=== PATIENT | female | born 1955 | race Two or more races ===

== ENCOUNTER 2023-08-19 18:11 | Inpatient (IN) | payer MEDICARE, OTHER ==
[~2023-08-19] VITALS: Ht 157.5 cm; Wt 95.4 kg
[~2023-08-19 18:11] MED LIST: DOXY100T2 PO; PRED20TA PO
[2023-08-19] MEDS ORDERED: methylPREDNISolone SOD SUCC 125 MG/2ML VIAL ONE (18:29)
[2023-08-19] MEDS ORDERED: ALBUTEROL FS 2.5 MG/3 ML VIAL.NEB ONE (18:31)
[2023-08-19] MEDS ORDERED: IPRATROPIUM NEB FS 0.5 MG/2.5 ML AMPUL.NEB ONE (18:31)
[2023-08-19 18:37] VITALS: O2SAT 97
[2023-08-19] MEDS: IPRATROPIUM NEB FS 0.5 MG/2.5 ML AMPUL.NEB NEB ONE (18:37)
[2023-08-19] MEDS: ALBUTEROL FS 2.5 MG/3 ML VIAL.NEB CONTNEB ONE (18:37)
[2023-08-19] MEDS: methylPREDNISolone SOD SUCC 125 MG/2ML VIAL IV ONE (18:48)
[2023-08-19] MEDS ORDERED: Magnesium 1GM/D5W 100ML PREMIX 100 ML IV ONE ×2 (18:51→19:20)
[2023-08-19 19:00] LABS: BASOPHILS # (AUTO) 0.2 K/uL (0.0-0.2); HEMATOCRIT 35 % (33-45); HEMOGLOBIN 11.1 g/dL (11.5-14.8); LYMPHOCYTES # (AUTO) 1.1 K/uL (0.8-4.8); LYMPHOCYTES % (AUTO) 10.5 % (20.0-44.0); MEAN CORPUSCULAR HEMOGLOBIN 29 PG (26.0-33.0); MEAN CORPUSCULAR HGB CONC 32 g/dl (31.0-36.0); MEAN CORPUSCULAR VOLUME 91 fL (82-100); MONOCYTES # (AUTO) 0.5 K/uL (0.1-1.30); MONOCYTES % (AUTO) 4.8 % (2.0-12.0); NEUTROPHILS # (AUTO) 8.7 K/uL (1.8-8.9); NEUTROPHILS % (AUTO) 82.7 % (43.0-81.0); PLATELET COUNT (AUTO) 235 K/uL (150-450); RED BLOOD CELL COUNT(AUTO) 3.87 MIL/uL (4.0-5.2); RED CELL DISTRIBUTION WIDTH 21.6 % (11.5-15.0); WHITE BLOOD COUNT (AUTO) 10.5 K/uL (4.3-11.0)
[2023-08-19] MEDS: Magnesium 1GM/D5W 100ML PREMIX 200 ML IV ONE (19:00)
[2023-08-19 19:23] LABS: CALCIUM, SERUM 8.8 mg/dL (8.5-10.1); CARBON DIOXIDE 37 mmol/L (21-32); CHLORIDE 99 mmol/L (98-107); CREATININE 0.4 mg/dL (0.6-1.3); GLUCOSE 268 mg/dL (74-106); POTASSIUM 5.3 mmol/L (3.5-5.1); SODIUM SERUM 140 mmol/L (136-145); UREA NITROGEN, BLOOD 19 mg/dL (7-18)
[2023-08-19 19:38] LABS: ALANINE AMINOTRANSFERASE 22 U/L (12-78); ALBUMIN 2.5 g/dL (3.4-5.0); ALKALINE PHOSPHATASE 70 U/L (46-116); ASPARTATE AMINOTRANSFERASE 12 U/L (15-37); BILIRUBIN,TOTAL 0.3 mg/dL (0.2-1.0); NT-PRO BNP 148 pg/mL (0-125); TOTAL PROTEIN, SERUM 5.8 g/dL (6.4-8.2)
[2023-08-19 19:40] VITALS: O2SAT 93
[2023-08-19] MEDS: VANCOMYCIN 1 GM in IV D5W 250 ML IV ONE (21:00)
[2023-08-19 21:03] LABS: ANISOCYTOSIS 1+; LYMPHOCYTES % (MANUAL) 16 % (16-48); MONOCYTES % (MANUAL) 6 % (0-11.0); NEUTROPHILS % (MANUAL) 78 (42-76); PLATELET ESTIMATE ADEQUATE
[2023-08-19 21:04] LABS: OVALOCYTES 1+
[2023-08-19] MEDS ORDERED: PIPERACI/TAZO 3.375GM/D5W 50ML PB IV ONE (21:04)
[2023-08-19] MEDS: PIPERACILLIN /TAZOBACTAM 3.375 G in IV D5W 50 ML IV ONE (21:10)
[2023-08-19] MEDS ORDERED: AZITHROMYCIN 500 MG VIAL ONE (21:23)
[2023-08-19] MEDS ORDERED: VANCOMYCIN 1 GM /D5W 250 ML PB IV ONE (21:23)
[2023-08-19] MEDS ORDERED: DEXTROSE 50%-WATER 50 ML DISP.SYRIN IV PRN (21:30)
[2023-08-19] MEDS ORDERED: ACETAMINOPHEN 325 MG TABLET PO PRN (21:30)
[2023-08-19] MEDS ORDERED: hydrALAZINE HCL IV 20 MG VIAL IV PRN (21:30)
[2023-08-19] MEDS ORDERED: MORPHINE SULFATE INJ 2 MG/ML DISP.SYRIN IV PRN (21:30)
[2023-08-19] MEDS ORDERED: ONDANSETRON HCL/PF 4 MG/2 ML VIAL IVP PRN (21:30)
[2023-08-19] MEDS ORDERED: LEVOFLOXACIN 750 MG /D5W 150ML 750 MG in PREMIX 1 EA IV SCH (21:30)
[2023-08-19] MEDS: AZITHROMYCIN 500 MG in IV D5W 250 ML IV ONE (22:15)
[2023-08-19] MEDS: BLOOD SUGAR DIAGNOSTIC 1 EACH STRIP VI SCH (23:46)
[2023-08-19] MEDS: *INSULIN REGULAR(HUMULIN R)HUM 100 UNIT/ML VIAL SQ PRN (23:54)
[2023-08-19] MEDS: INSULIN GLARGINE, 100 UNIT/ML CARTRIDGE SQ SCH (23:54)
[2023-08-20] VITALS (11 sets, daily range): BP systolic 99–124; BP diastolic 66–74; TEMP 97.9; O2SAT 94–100
[2023-08-20] MEDS ORDERED: IPRATROPIUM/ALBUTEROL INHALER IH SCH
[2023-08-20] MEDS: TRAZODONE 50 MG TABLET PO SCH ×2 (00:08→21:12)
[2023-08-20] MEDS: QUETIAPINE FUMARATE 100 MG TABLET PO SCH ×2 (00:09→21:12)
[2023-08-20] MEDS ORDERED: VANCOMYCIN 1 GM /D5W 250 ML PB IV ONE (00:17)
[2023-08-20] MEDS: VANCOMYCIN 1 GM in IV D5W 250ml IV ONE (00:22)
[2023-08-20] MEDS: ALBUTEROL FS 2.5 MG/0.5 ML VIAL.NEB NEB SCH (02:04)
[2023-08-20] MEDS: IPRATROPIUM NEB FS 0.5 MG/2.5 ML AMPUL.NEB IH SCH (02:04)
[2023-08-20] MEDS ORDERED: CEFEPIME 1 GM VIAL ONE (02:21)
[2023-08-20] MEDS: CEFEPIME HCL 2 GM in IV D5W 100 ML IV ONE (02:33)
[2023-08-20] MEDS: INSULIN REGULAR, HUMAN 100 UNIT/ML 3 ML VIAL SQ PRN (06:31)
[2023-08-20 07:47] LABS: HEMATOCRIT 30 % (33-45); HEMOGLOBIN 9.6 g/dL (11.5-14.8); LYMPHOCYTES % (AUTO) 11.3 % (20.0-44.0); MEAN CORPUSCULAR HEMOGLOBIN 28 PG (26.0-33.0); MEAN CORPUSCULAR HGB CONC 32 g/dl (31.0-36.0); MEAN CORPUSCULAR VOLUME 89 fL (82-100); MONOCYTES # (AUTO) 0.4 K/uL (0.1-1.30); MONOCYTES % (AUTO) 4.6 % (2.0-12.0); NEUTROPHILS # (AUTO) 7.5 K/uL (1.8-8.9); NEUTROPHILS % (AUTO) 84.1 % (43.0-81.0); PLATELET COUNT (AUTO) 198 K/uL (150-450); RED BLOOD CELL COUNT(AUTO) 3.39 MIL/uL (4.0-5.2); WHITE BLOOD COUNT (AUTO) 8.9 K/uL (4.3-11.0)
[2023-08-20 07:59] LABS: BILIRUBIN,TOTAL 0.2 mg/dL (0.2-1.0); CALCIUM, SERUM 8.5 mg/dL (8.5-10.1); CREATININE 0.5 mg/dL (0.6-1.3); MAGNESIUM 2.2 mg/dL (1.8-2.4); PHOSPHORUS 3.2 mg/dL (2.5-4.9); POTASSIUM 4.6 mmol/L (3.5-5.1); TOTAL PROTEIN, SERUM 4.8 g/dL (6.4-8.2)
[2023-08-20] MEDS ORDERED: HEPARIN SODIUM, PORCINE 5000 UNITS/1 ML VIAL SQ SCH (09:00)
[2023-08-20] MEDS: QUETIAPINE FUMARATE 25 MG TABLET PO SCH (09:09)
[2023-08-20] MEDS: SOTALOL AF 80 MG TABLET PO SCH ×2 (09:10→21:47)
[2023-08-20] MEDS: FUROSEMIDE 40 MG TABLET PO SCH (09:10)
[2023-08-20] MEDS: LOSARTAN POTASSIUM 50 MG TABLET PO SCH (09:10)
[2023-08-20] MEDS: SPIRONOLACTONE 25 MG TABLET PO SCH (09:10)
[2023-08-20] MEDS: DULOXETINE HCL 20 MG CAPSULE.DR PO SCH (09:10)
[2023-08-20] MEDS: APIXABAN 5 MG TABLET PO SCH (09:11)
[2023-08-20] MEDS: VANCOMYCIN 1.25 GM in IV D5W 250 ML IV SCH (09:17)
[2023-08-20] MEDS ORDERED: TRAZ-257 PO (13:16)
[2023-08-20] MEDS ORDERED: IPRA3AMP23 IH (13:16)
[2023-08-20] MEDS ORDERED: FURO40TA5 PO (13:16)
[2023-08-20] MEDS ORDERED: SPIR25TA6 PO (13:16)
[2023-08-20] MEDS ORDERED: QUET50TA PO ×2 (13:16)
[2023-08-20] MEDS ORDERED: QUET200T PO (13:16)
[2023-08-20] MEDS ORDERED: SOTA80TA PO (13:16)
[2023-08-20] MEDS ORDERED: CLON0.1T PO (13:16)
[2023-08-20] MEDS ORDERED: INSU100I30 SQ (13:16)
[2023-08-20] MEDS ORDERED: INSU100I52 SQ ×2 (13:16)
[2023-08-20] MEDS ORDERED: APIX5TAB PO (13:16)
[2023-08-20] MEDS ORDERED: MAGN400O21 PO (13:16)
[2023-08-20] MEDS ORDERED: DOCU100C36 PO (13:16)
[2023-08-20] MEDS ORDERED: MELA3TAB41 PO (13:16)
[2023-08-20] MEDS ORDERED: ALPR1TAB7 PO (13:16)
[2023-08-20] MEDS ORDERED: DULO20CA PO (13:16)
[2023-08-20] MEDS ORDERED: FAMO20TA8 PO (13:16)
[2023-08-20] MEDS ORDERED: BISM262T14 PO (13:16)
[2023-08-20] MEDS ORDERED: GUAI100S9 PO (13:16)
[2023-08-20] MEDS ORDERED: NA P133E RC (13:16)
[2023-08-20] MEDS ORDERED: PANT40TA49 PO (13:16)
[2023-08-20] MEDS ORDERED: BISA10SU11 RC (13:16)
[2023-08-20] MEDS ORDERED: LOSA50TA3 PO (13:16)
[2023-08-20 19:22] LABS: ABG BASE EXCESS 16.5 mmol/L; ABG OXYGEN SATURATION 92.8 % (92.0-98.5); ABG PCO2 74.2 mmHg (35.0-45.0); ABG PH 7.397 (7.350-7.450); ABG PO2 64.7 mmHg (75.0-100.0); ABG TOTAL HEMOGLOBIN 11.7 G/dL (12.0-16.0); AaDO2 105.9 mmHg; COHb 0.6 % (0.5-1.5); MetHb 0.2 % (0.0-1.5); O2Hb 92.1 % (94.0-97.0); SITE, ABG Left Radial
[2023-08-20] MEDS: CEFEPIME 2 GM in IV D5W 100 ML IV SCH (20:41)
[2023-08-20] MEDS ORDERED: INSULIN GLARGINE, 100 UNIT/ML CARTRIDGE SQ SCH (22:00)
[2023-08-21] VITALS (10 sets, daily range): BP systolic 113–138; BP diastolic 60–61; TEMP 98.4–98.8; O2SAT 91–100
[2023-08-21 07:23] LABS: BASOPHILS % (AUTO) 0.1 % (0.0-2.0); EOSINOPHILS % (AUTO) 0.4 % (0.0-6.0); HEMATOCRIT 32 % (33-45); HEMOGLOBIN 10.2 g/dL (11.5-14.8); LYMPHOCYTES # (AUTO) 2.4 K/uL (0.8-4.8); LYMPHOCYTES % (AUTO) 28.1 % (20.0-44.0); MEAN CORPUSCULAR HEMOGLOBIN 28 PG (26.0-33.0); MEAN CORPUSCULAR HGB CONC 32 g/dl (31.0-36.0); MEAN CORPUSCULAR VOLUME 89 fL (82-100); MONOCYTES # (AUTO) 0.9 K/uL (0.1-1.30); NEUTROPHILS # (AUTO) 5.3 K/uL (1.8-8.9); NEUTROPHILS % (AUTO) 61.4 % (43.0-81.0); PLATELET COUNT (AUTO) 194 K/uL (150-450); RED BLOOD CELL COUNT(AUTO) 3.61 MIL/uL (4.0-5.2); RED CELL DISTRIBUTION WIDTH 21.3 % (11.5-15.0); WHITE BLOOD COUNT (AUTO) 8.6 K/uL (4.3-11.0)
[2023-08-21 07:31] LABS: CALCIUM, SERUM 8.4 mg/dL (8.5-10.1); CREATININE 0.2 mg/dL (0.6-1.3); MAGNESIUM 2.2 mg/dL (1.8-2.4); PHOSPHORUS 3.5 mg/dL (2.5-4.9); POTASSIUM 4.4 mmol/L (3.5-5.1)
[2023-08-21] MEDS ORDERED: LOSARTAN POTASSIUM 50 MG TABLET PO SCH (09:00)
[2023-08-21] MEDS ORDERED: SPIRONOLACTONE 25 MG TABLET PO SCH (09:00)
[2023-08-21] MEDS ORDERED: QUETIAPINE FUMARATE 25 MG TABLET PO SCH (09:00)
[2023-08-21] MEDS ORDERED: DULOXETINE HCL 20 MG CAPSULE.DR PO SCH (09:00)
[2023-08-21] MEDS ORDERED: FUROSEMIDE 40 MG TABLET PO SCH (09:00)
[2023-08-21] MEDS: SOTALOL AF 80 MG TABLET PO SCH (09:00)
[2023-08-21] MEDS ORDERED: APIXABAN 5 MG TABLET PO SCH (09:00)
[2023-08-21] MEDS ORDERED: Z GUARD REMEDY 4 OZ OINT TP PRN (10:30)
[2023-08-21] MEDS: methylPREDNISolone SOD SUCC 125 MG/2ML VIAL IV SCH (11:00)
[2023-08-21] MEDS: Z GUARD REMEDY 4 OZ OINT TP SCH (11:50)
[2023-08-21] MEDS: ALPRAZOLAM 0.5 MG TABLET PO PRN (12:22)
[2023-08-21] MEDS: DOCUSATE SODIUM 100 MG CAPSULE PO SCH (13:39)
[2023-08-21] MEDS: SENNOSIDES 8.6 MG TABLET PO SCH (13:39)
[2023-08-21] MEDS: LORAZEPAM 1 MG TABLET PO PRN (17:39)
[2023-08-22] VITALS (13 sets, daily range): BP systolic 108–115; BP diastolic 62–72; TEMP 93–98.4; O2SAT 88–98
[2023-08-22 06:35] LABS: BASOPHILS % (AUTO) 0.4 % (0.0-2.0); HEMATOCRIT 36 % (33-45); HEMOGLOBIN 11.5 g/dL (11.5-14.8); LYMPHOCYTES # (AUTO) 1.3 K/uL (0.8-4.8); LYMPHOCYTES % (AUTO) 13.5 % (20.0-44.0); MEAN CORPUSCULAR HEMOGLOBIN 28 PG (26.0-33.0); MEAN CORPUSCULAR HGB CONC 32 g/dl (31.0-36.0); MEAN CORPUSCULAR VOLUME 88 fL (82-100); MONOCYTES # (AUTO) 0.3 K/uL (0.1-1.30); MONOCYTES % (AUTO) 3.2 % (2.0-12.0); NEUTROPHILS # (AUTO) 8.2 K/uL (1.8-8.9); NEUTROPHILS % (AUTO) 82.9 % (43.0-81.0); PLATELET COUNT (AUTO) 220 K/uL (150-450); RED BLOOD CELL COUNT(AUTO) 4.12 MIL/uL (4.0-5.2); RED CELL DISTRIBUTION WIDTH 20.8 % (11.5-15.0); WHITE BLOOD COUNT (AUTO) 9.9 K/uL (4.3-11.0)
[2023-08-22 07:07] LABS: CALCIUM, SERUM 9.3 mg/dL (8.5-10.1); CREATININE 0.2 mg/dL (0.6-1.3); MAGNESIUM 2.5 mg/dL (1.8-2.4); POTASSIUM 4.3 mmol/L (3.5-5.1)
[2023-08-22] MEDS: CEFEPIME HCL 2 GM in IV D5W 100 ML IV SCH (20:19)
[2023-08-22] MEDS: ALBUTEROL FS 2.5 MG/0.5 ML VIAL.NEB NEB PRN (23:37)
[2023-08-23] VITALS (8 sets, daily range): BP systolic 102; BP diastolic 50; TEMP 97.3; O2SAT 90–98
[2023-08-23] MEDS: NA PHOS,M-B/NA PHOS,DI-BA 1 EA ENEMA RC PRN (03:07)
[2023-08-23 06:59] LABS: HEMATOCRIT 31 % (33-45); LYMPHOCYTES # (AUTO) 1.5 K/uL (0.8-4.8); LYMPHOCYTES % (AUTO) 13.6 % (20.0-44.0); MEAN CORPUSCULAR HEMOGLOBIN 28 PG (26.0-33.0); MEAN CORPUSCULAR HGB CONC 32 g/dl (31.0-36.0); MEAN CORPUSCULAR VOLUME 88 fL (82-100); MONOCYTES # (AUTO) 0.6 K/uL (0.1-1.30); MONOCYTES % (AUTO) 5.5 % (2.0-12.0); NEUTROPHILS # (AUTO) 8.7 K/uL (1.8-8.9); NEUTROPHILS % (AUTO) 80.9 % (43.0-81.0); PLATELET COUNT (AUTO) 197 K/uL (150-450); RED BLOOD CELL COUNT(AUTO) 3.52 MIL/uL (4.0-5.2); RED CELL DISTRIBUTION WIDTH 20.2 % (11.5-15.0); WHITE BLOOD COUNT (AUTO) 10.7 K/uL (4.3-11.0)
[2023-08-23 07:14] LABS: CALCIUM, SERUM 8.8 mg/dL (8.5-10.1); CREATININE 0.2 mg/dL (0.6-1.3); MAGNESIUM 2.3 mg/dL (1.8-2.4); PHOSPHORUS 3.1 mg/dL (2.5-4.9); POTASSIUM 4.2 mmol/L (3.5-5.1)
== END 2023-08-23 14:00 | DRG 177 ==
LOC: ER 18:22 → TELE 21:02 → MED 08-20 10:40
PROVIDERS: ADMIT Internal Medicine
PROC: 05HY33Z Insertion of Infusion Device into Upper Vein, Percutaneous Approach (ICD-10-PCS; principal; 2023-08-20)
DX: J15.69 Pneumonia due to other Gram-negative bacteria (principal); J96.21 Acute and chronic respiratory failure with hypoxia; J96.22 Acute and chronic respiratory failure with hypercapnia; I50.32 Chronic diastolic (congestive) heart failure; J44.0 Chronic obstructive pulmonary disease with (acute) lower respiratory infection; J98.11 Atelectasis; J44.1 Chronic obstructive pulmonary disease with (acute) exacerbation; D68.69 Other thrombophilia; J90 Pleural effusion, not elsewhere classified; I11.0 Hypertensive heart disease with heart failure; F31.9 Bipolar disorder, unspecified; E11.65 Type 2 diabetes mellitus with hyperglycemia; I48.91 Unspecified atrial fibrillation; E87.5 Hyperkalemia; D64.9 Anemia, unspecified; G47.33 Obstructive sleep apnea (adult) (pediatric); Z79.01 Long term (current) use of anticoagulants; Z86.73 Personal history of transient ischemic attack (TIA), and cerebral infarction without residual deficits; Z87.891 Personal history of nicotine dependence; Z99.81 Dependence on supplemental oxygen; Z20.822 Contact with and (suspected) exposure to COVID-19; E86.0 Dehydration; L89.526 Pressure-induced deep tissue damage of left ankle; L89.516 Pressure-induced deep tissue damage of right ankle
CPT/HCPCS: 36415; 36600; 71045-TC; 71250-TC; 80048-TC; 80053-TC; 80076-TC; 80202-TC; 82803-TC; 82962-TC; 83605-TC; 83735-TC; 83880; 84100-TC; 84484-TC; 85025-TC; 93307-TC; 94762-TC; 94799-TC; A4223; G0378; J0456; J0692; J1815; J2543; J2930; J3370; J3475; J7050; J7060

== ENCOUNTER 2023-08-24 00:13 | Emergency (ER) | payer MEDICARE, OTHER ==
[~2023-08-24] VITALS: Ht 167.6 cm; Wt 96.6 kg
[~2023-08-24 00:13] MED LIST changes: +ALPR1TAB7 PO; +APIX5TAB PO; +BISA10SU11 RC; +BISM262T14 PO; +CLON0.1T PO; +DOCU100C36 PO; +DULO20CA PO; +FAMO20TA8 PO; +FURO40TA5 PO; +GUAI100S9 PO; +INSU100I30 SQ; +INSU100I52 SQ; +IPRA3AMP23 IH; +LOSA50TA3 PO; +MAGN400O21 PO; +MELA3TAB41 PO; +NA P133E RC; +PANT40TA49 PO; +QUET200T PO; +QUET50TA PO; +SOTA80TA PO; +SPIR25TA6 PO; +TRAZ-257 PO
[2023-08-24 00:19] VITALS: TEMP 98.3
[2023-08-24 01:20] LABS: ABG OXYGEN SATURATION 98.7 % (92.0-98.5); ABG PCO2 68.2 mmHg (35.0-45.0); ABG PH 7.371 (7.350-7.450); ABG PO2 150.2 mmHg (75.0-100.0); ABG TOTAL HEMOGLOBIN 11.8 G/dL (12.0-16.0); COHb 0.1 % (0.5-1.5); MetHb 0.3 % (0.0-1.5); O2Hb 98.3 % (94.0-97.0); SITE, ABG Right Radial; VENT MODE, BG Room Air
[2023-08-24 01:54] LABS: BASOPHILS % (AUTO) 0.3 % (0.0-2.0); EOSINOPHILS % (AUTO) 0.1 % (0.0-6.0); HEMATOCRIT 33 % (33-45); HEMOGLOBIN 10.7 g/dL (11.5-14.8); LYMPHOCYTES # (AUTO) 1.6 K/uL (0.8-4.8); LYMPHOCYTES % (AUTO) 16.2 % (20.0-44.0); MEAN CORPUSCULAR HEMOGLOBIN 28 PG (26.0-33.0); MEAN CORPUSCULAR HGB CONC 32 g/dl (31.0-36.0); MEAN CORPUSCULAR VOLUME 88 fL (82-100); MONOCYTES # (AUTO) 0.9 K/uL (0.1-1.30); MONOCYTES % (AUTO) 9.2 % (2.0-12.0); NEUTROPHILS # (AUTO) 7.4 K/uL (1.8-8.9); NEUTROPHILS % (AUTO) 74.2 % (43.0-81.0); PLATELET COUNT (AUTO) 199 K/uL (150-450); RED BLOOD CELL COUNT(AUTO) 3.78 MIL/uL (4.0-5.2); RED CELL DISTRIBUTION WIDTH 20.8 % (11.5-15.0)
[2023-08-24 02:07] LABS: APPEARANCE,URINE CLOUDY (CLEAR); BILIRUBIN,URINE NEGATIVE (NEGATIVE); BLOOD, URINE 3+ Ery/uL (NEGATIVE); COLOR,URINE YELLOW (YELLOW); KETONES,URINE NEGATIVE (NEGATIVE); LEUKOCYTE ESTERASE ,URINE 3+ (NEGATIVE); NITRITE, URINE NEGATIVE (NEGATIVE); PROTEIN,URINE NEGATIVE (NEGATIVE); UGLUCOSE NEGATIVE (NEGATIVE); UROBILINOGEN,URINE 0.2 EU/dL (0.2)
[2023-08-24] MEDS ORDERED: methylPREDNISolone SOD SUCC 125 MG/2ML VIAL ONE (02:07)
[2023-08-24] MEDS: methylPREDNISolone SOD SUCC 125 MG/2ML VIAL IV ONE (02:08)
[2023-08-24 02:12] LABS: LACTIC ACID 0.9 mmol/L (0.4-2.0)
[2023-08-24 02:19] LABS: ALANINE AMINOTRANSFERASE 26 U/L (12-78); ALBUMIN 2.4 g/dL (3.4-5.0); ALKALINE PHOSPHATASE 64 U/L (46-116); ASPARTATE AMINOTRANSFERASE < 5 U/L (15-37); BILIRUBIN,TOTAL 0.3 mg/dL (0.2-1.0); CHLORIDE 101 mmol/L (98-107); CREATININE 0.3 mg/dL (0.6-1.3); GLUCOSE 137 mg/dL (74-106); NT-PRO BNP 162 pg/mL (0-125); POTASSIUM 4.5 mmol/L (3.5-5.1); SODIUM SERUM 141 mmol/L (136-145); TOTAL PROTEIN, SERUM 5.6 g/dL (6.4-8.2); UREA NITROGEN, BLOOD 14 mg/dL (7-18)
[2023-08-24 02:24] LABS: CARBON DIOXIDE 41 mmol/L (21-32)
[2023-08-24 02:59] LABS: RBC,URINE TOO NUMEROUS TO COUN /HPF (0-2); WBC,URINE TOO NUMEROUS TO COUN /HPF (0-3)
[2023-08-24 03:00] LABS: ADD URINE CULTURE YES; BACTERIA,URINE 1+ /HPF (None Seen)
[2023-08-24 03:08] VITALS: O2SAT 92
[2023-08-24] MEDS: ALBUTEROL FS 2.5 MG/3 ML VIAL.NEB NEB ONE (03:08)
[2023-08-24] MEDS ORDERED: ALBUTEROL FS 2.5 MG/3 ML VIAL.NEB ONE (03:12)
[2023-08-24 03:29] VITALS: BP 122/77
[2023-08-24] MEDS ORDERED: CEFTRIAXONE 1GM BAG (ER ONLY) 50 ML IV ONE (03:31)
[2023-08-24] MEDS: CEFTRIAXONE 1 G in IV D5W 50 ML IV ONE (03:32)
[2023-08-24 03:39] VITALS: O2SAT 100
== END 2023-08-24 04:42 ==
LOC: ER 00:26
DX: J44.9 Chronic obstructive pulmonary disease, unspecified (principal); N39.0 Urinary tract infection, site not specified; I11.0 Hypertensive heart disease with heart failure; I50.9 Heart failure, unspecified; E11.9 Type 2 diabetes mellitus without complications; I48.91 Unspecified atrial fibrillation; Z86.73 Personal history of transient ischemic attack (TIA), and cerebral infarction without residual deficits; Z79.4 Long term (current) use of insulin; Z79.899 Other long term (current) drug therapy
CPT/HCPCS: 99285; 96365; 71045; 96375; 93005; 82803; 85025; 87040; 87086; 83605; 81001; 36415; 80053; 84484; 83880; 36600 ×2; 94640; J0696 ×2; J2930; J7060

== ENCOUNTER 2023-09-01 16:13 | Inpatient (IN) | payer MEDICARE, OTHER ==
[~2023-09-01] VITALS: Ht 167.6 cm; Wt 94.3 kg
[2023-09-01] MEDS ORDERED: PIPERACI/TAZO 3.375GM/D5W 50ML PB IV ONE (17:07)
[2023-09-01 17:12] LABS: BASOPHILS % (AUTO) 0.7 % (0.0-2.0); EOSINOPHILS % (AUTO) 0.2 % (0.0-6.0); HEMATOCRIT 28 % (33-45); HEMOGLOBIN 9.1 g/dL (11.5-14.8); LYMPHOCYTES # (AUTO) 0.4 K/uL (0.8-4.8); LYMPHOCYTES % (AUTO) 6.9 % (20.0-44.0); MEAN CORPUSCULAR HEMOGLOBIN 28 PG (26.0-33.0); MEAN CORPUSCULAR HGB CONC 32 g/dl (31.0-36.0); MEAN CORPUSCULAR VOLUME 88 fL (82-100); MONOCYTES # (AUTO) 0.3 K/uL (0.1-1.30); MONOCYTES % (AUTO) 4.8 % (2.0-12.0); NEUTROPHILS # (AUTO) 4.8 K/uL (1.8-8.9); NEUTROPHILS % (AUTO) 87.4 % (43.0-81.0); PLATELET COUNT (AUTO) 168 K/uL (150-450); RED BLOOD CELL COUNT(AUTO) 3.23 MIL/uL (4.0-5.2); RED CELL DISTRIBUTION WIDTH 18.5 % (11.5-15.0); WHITE BLOOD COUNT (AUTO) 5.5 K/uL (4.3-11.0)
[2023-09-01 17:14] LABS: APPEARANCE,URINE Clear (CLEAR); BILIRUBIN,URINE Negative (NEGATIVE); BLOOD, URINE Moderate Ery/uL (NEGATIVE); COLOR,URINE YELLOW (YELLOW); KETONES,URINE Negative (NEGATIVE); LEUKOCYTE ESTERASE ,URINE Small (NEGATIVE); NITRITE, URINE Negative (NEGATIVE); PH,URINE 8.5 (5.0-8.0); PROTEIN,URINE Negative (NEGATIVE); UGLUCOSE Negative (NEGATIVE); UROBILINOGEN,URINE 0.2 EU/dL (0.2)
[2023-09-01] MEDS: PIPERACILLIN /TAZOBACTAM 3.375 G in IV D5W 50 ML IV ONE (17:14)
[2023-09-01] MEDS ORDERED: VANCOMYCIN 1 GM /D5W 250 ML PB IV ONE (17:16)
[2023-09-01 17:24] LABS: INR 1.12 (0.91-1.10); PARTIAL THROMBOPLASTIN TIME 21.9 SEC (24.3-34.3); PROTHROMBIN TIME 11.4 SECS (9.2-11.1)
[2023-09-01] MEDS ORDERED: ASCO500T10 PO (17:25)
[2023-09-01] MEDS ORDERED: MELA5TAB PO (17:25)
[2023-09-01] MEDS ORDERED: TRAZ-182 PO (17:25)
[2023-09-01] MEDS ORDERED: MAGN400O6 PO (17:25)
[2023-09-01] MEDS ORDERED: SENN-261 PO (17:25)
[2023-09-01] MEDS ORDERED: INSU100I14 SQ (17:25)
[2023-09-01] MEDS ORDERED: AMIN30LI66 PO (17:25)
[2023-09-01] MEDS ORDERED: MULT-213 PO (17:25)
[2023-09-01] MEDS ORDERED: ACET-868 PO (17:25)
[2023-09-01] MEDS ORDERED: IPRA0.2S49 IH (17:25)
[2023-09-01] MEDS ORDERED: CEFT1VIA14 IV (17:25)
[2023-09-01] MEDS ORDERED: ALPR0.5T8 PO (17:25)
[2023-09-01] MEDS ORDERED: ACET-2605 PO (17:25)
[2023-09-01 17:26] LABS: ALANINE AMINOTRANSFERASE 146 U/L (12-78); ALBUMIN 2.1 g/dL (3.4-5.0); ALKALINE PHOSPHATASE 122 U/L (46-116); ASPARTATE AMINOTRANSFERASE 41 U/L (15-37); BILIRUBIN,DIRECT 0.1 mg/dL (0.0-0.2); BILIRUBIN,TOTAL 0.4 mg/dL (0.2-1.0); CALCIUM, SERUM 8.7 mg/dL (8.5-10.1); CHLORIDE 92 mmol/L (98-107); CREATININE 0.4 mg/dL (0.6-1.3); GLUCOSE 118 mg/dL (74-106); SODIUM SERUM 141 mmol/L (136-145); TOTAL PROTEIN, SERUM 5.9 g/dL (6.4-8.2); UREA NITROGEN, BLOOD 6 mg/dL (7-18)
[2023-09-01] MEDS: VANCOMYCIN 1 GM in IV D5W 250 ML IV ONE (17:30)
[2023-09-01 17:32] LABS: CARBON DIOXIDE 50 mmol/L (21-32); POTASSIUM 2.2 mmol/L (3.5-5.1)
[2023-09-01 17:33] LABS: ADD URINE CULTURE YES; BACTERIA,URINE 1+ /HPF (None Seen); RBC,URINE 21-50 /HPF (0-2)
[2023-09-01 17:48] LABS: LACTIC ACID 1.5 mmol/L (0.4-2.0)
[2023-09-01] MEDS ORDERED: POTASSIUM CL. PREMIX PERIPHER. 50 ML ONE ×2 (18:02→19:11)
[2023-09-01] MEDS: IV NS 0.9% 1,000 ML BAG IV ONE (18:05)
[2023-09-01] MEDS ORDERED: ACETAMINOPHEN ES 500 MG TABLET ONE (18:06)
[2023-09-01] MEDS ORDERED: ASPIRIN 81 MG TAB.CHEW ONE (18:07)
[2023-09-01] MEDS: ACETAMINOPHEN ES 500 MG TABLET PO ONE (18:15)
[2023-09-01] MEDS: ASPIRIN 81 MG TAB.CHEW PO ONE (18:15)
[2023-09-01] MEDS: POTASSIUM CL. PREMIX PERIPHER. 50 ML IV SCH ×2 (18:28→21:31)
[2023-09-01] MEDS ORDERED: ONDANSETRON HCL/PF 4 MG/2 ML VIAL IVP PRN (19:00)
[2023-09-01] MEDS ORDERED: MAGNESIUM HYDROXIDE 30 ML UDC PO PRN ×2 (19:00)
[2023-09-01] MEDS ORDERED: Z GUARD REMEDY 4 OZ OINT TP PRN (19:00)
[2023-09-01] MEDS ORDERED: ACETAMINOPHEN 325 MG TABLET PO PRN (19:00)
[2023-09-01] MEDS ORDERED: MORPHINE SULFATE INJ 2 MG/ML DISP.SYRIN IV PRN (19:00)
[2023-09-01] MEDS: POTASSIUM CHLORIDE 20 MEQ POWDER PACKET PO ONE (19:18)
[2023-09-01] MEDS ORDERED: DEXTROSE 50%-WATER 50 ML DISP.SYRIN IV PRN (19:30)
[2023-09-01] MEDS: SOTALOL HCL 80 MG TABLET PO SCH (21:00)
[2023-09-01] MEDS: APIXABAN 5 MG TABLET PO SCH (21:00)
[2023-09-01 21:48] VITALS: BP 113/61; TEMP 97; O2SAT 96
[2023-09-01] MEDS: IV NS 0.9% 1,000 ML BAG IV PRN (21:57)
[2023-09-01] MEDS: CEFEPIME HCL 2 GM in IV D5W 100 ML IV SCH (21:59)
[2023-09-01] MEDS: SENNOSIDES 8.6 MG TABLET PO SCH (22:00)
[2023-09-01] MEDS: BLOOD SUGAR DIAGNOSTIC 1 EACH STRIP IN SCH (22:41)
[2023-09-02] VITALS (7 sets, daily range): BP systolic 105–125; BP diastolic 56–81; TEMP 97.7–98.6; O2SAT 95–98
[2023-09-02] MEDS ORDERED: VANCOMYCIN 500 MG VIAL ONE (03:22)
[2023-09-02] MEDS: VANCOMYCIN HCL 1.25 GM in IV D5W 250 ML IV SCH (03:37)
[2023-09-02] MEDS: VANCOMYCIN 1 GM /D5W 250 ML PB IV ONE (03:39)
[2023-09-02 04:24] LABS: ABG BASE EXCESS 17.9 mmol/L; ABG OXYGEN SATURATION 84.9 % (92.0-98.5); ABG PCO2 73.2 mmHg (35.0-45.0); ABG PH 7.414 (7.350-7.450); ABG PO2 50.4 mmHg (75.0-100.0); ABG TOTAL HEMOGLOBIN 11.6 G/dL (12.0-16.0); AaDO2 77.5 mmHg; COHb 1.1 % (0.5-1.5); MetHb 0.3 % (0.0-1.5); O2Hb 83.7 % (94.0-97.0); SITE, ABG Right Radial; VENT MODE, BG Bipap 20/5 30% RR14
[2023-09-02 06:22] LABS: BASOPHILS % (AUTO) 0.4 % (0.0-2.0); HEMATOCRIT 26 % (33-45); HEMOGLOBIN 8.3 g/dL (11.5-14.8); LYMPHOCYTES # (AUTO) 0.5 K/uL (0.8-4.8); MEAN CORPUSCULAR HEMOGLOBIN 29 PG (26.0-33.0); MEAN CORPUSCULAR HGB CONC 32 g/dl (31.0-36.0); MEAN CORPUSCULAR VOLUME 89 fL (82-100); MONOCYTES # (AUTO) 0.5 K/uL (0.1-1.30); MONOCYTES % (AUTO) 11.4 % (2.0-12.0); NEUTROPHILS # (AUTO) 3.6 K/uL (1.8-8.9); NEUTROPHILS % (AUTO) 76.2 % (43.0-81.0); PLATELET COUNT (AUTO) 152 K/uL (150-450); RED BLOOD CELL COUNT(AUTO) 2.89 MIL/uL (4.0-5.2); WHITE BLOOD COUNT (AUTO) 4.8 K/uL (4.3-11.0)
[2023-09-02 07:11] LABS: CALCIUM, SERUM 8.2 mg/dL (8.5-10.1); CREATININE 0.3 mg/dL (0.6-1.3); MAGNESIUM 1.6 mg/dL (1.8-2.4); PHOSPHORUS 3.4 mg/dL (2.5-4.9); POTASSIUM 2.9 mmol/L (3.5-5.1)
[2023-09-02 07:25] LABS: THYROID STIMULATING HORMONE 0.739 uIU/mL (0.358-3.74)
[2023-09-02] MEDS: LOSARTAN POTASSIUM 50 MG TABLET PO SCH (08:43)
[2023-09-02] MEDS: PANTOPRAZOLE 40 MG VIAL IV SCH (08:43)
[2023-09-02] MEDS: DULOXETINE HCL 20 MG CAPSULE.DR PO SCH (08:44)
[2023-09-02] MEDS: DOCUSATE SODIUM 100 MG CAPSULE PO SCH (08:44)
[2023-09-02] MEDS: ASCORBIC ACID 500 MG TABLET PO SCH (08:44)
[2023-09-02] MEDS: MULTIVITAMINS,THERAGRAN 1 UDTAB TABLET PO SCH (08:45)
[2023-09-02] MEDS: PROSOURCE / PROSTAT (PYXIS) 30 ML UDC PO SCH (08:45)
[2023-09-02] MEDS: MAGNESIUM OXIDE 400 MG TABLET PO ONE (10:32)
[2023-09-02] MEDS: POTASSIUM CHLORIDE 20 MEQ TAB.PRT.SR PO SCH (10:40)
[2023-09-02] MEDS ORDERED: POTASSIUM CHLORIDE 20 MEQ TAB.PRT.SR PO SCH (14:00)
[2023-09-02] MEDS: POTASSIUM CL. PREMIX PERIPHER. 50 ML IV SCH (14:28)
[2023-09-02] MEDS: INSULIN REGULAR, HUMAN 100 UNIT/ML 3 ML VIAL SQ PRN (21:27)
[2023-09-02 22:01] LABS: ABG BASE EXCESS 16.5 mmol/L; ABG OXYGEN SATURATION 89.5 % (92.0-98.5); ABG PCO2 91.1 mmHg (35.0-45.0); ABG PH 7.317 (7.350-7.450); ABG PO2 64.7 mmHg (75.0-100.0); ABG TOTAL HEMOGLOBIN 9.5 G/dL (12.0-16.0); AaDO2 145.2 mmHg; COHb 0.4 % (0.5-1.5); MetHb 0.3 % (0.0-1.5); O2Hb 88.9 % (94.0-97.0); SITE, ABG Right Radial; VENT MODE, BG SIMPLE MASK
[2023-09-03] MEDS: ALBUTEROL FS 2.5 MG/3 ML VIAL.NEB NEB PRN (00:35)
[2023-09-03 01:00] VITALS: BP 131/68; TEMP 97.9; O2SAT 98
[2023-09-03 04:00] VITALS: BP 107/64; TEMP 98.3; O2SAT 98
[2023-09-03] MEDS: VANCOMYCIN HCL 1.25 GM in IV D5W 250 ML IV SCH (04:48)
[2023-09-03 07:19] LABS: BASOPHILS % (AUTO) 0.5 % (0.0-2.0); EOSINOPHILS # (AUTO) 0.1 K/uL (0.0-0.7); EOSINOPHILS % (AUTO) 1.2 % (0.0-6.0); HEMATOCRIT 27 % (33-45); HEMOGLOBIN 8.5 g/dL (11.5-14.8); LYMPHOCYTES # (AUTO) 1.2 K/uL (0.8-4.8); LYMPHOCYTES % (AUTO) 23.3 % (20.0-44.0); MEAN CORPUSCULAR HEMOGLOBIN 29 PG (26.0-33.0); MEAN CORPUSCULAR HGB CONC 32 g/dl (31.0-36.0); MEAN CORPUSCULAR VOLUME 90 fL (82-100); MONOCYTES # (AUTO) 0.7 K/uL (0.1-1.30); MONOCYTES % (AUTO) 13.3 % (2.0-12.0); NEUTROPHILS # (AUTO) 3.1 K/uL (1.8-8.9); NEUTROPHILS % (AUTO) 61.7 % (43.0-81.0); PLATELET COUNT (AUTO) 174 K/uL (150-450); RED BLOOD CELL COUNT(AUTO) 2.97 MIL/uL (4.0-5.2); RED CELL DISTRIBUTION WIDTH 18.5 % (11.5-15.0)
[2023-09-03 07:49] LABS: CREATININE 0.5 mg/dL (0.6-1.3); POTASSIUM 2.9 mmol/L (3.5-5.1)
[2023-09-03 08:00] VITALS: BP 156/104; TEMP 98.1; O2SAT 96
[2023-09-03 08:10] LABS: CALCIUM, SERUM 8.7 mg/dL (8.5-10.1)
[2023-09-03] MEDS: PANTOPRAZOLE 40 MG/PACK PACK PO SCH (08:41)
[2023-09-03] MEDS: ALPRAZOLAM 0.25 MG TABLET PO ONE (10:44)
[2023-09-03] MEDS: POTASSIUM CHLORIDE 20 MEQ POWDER PACKET PO SCH (11:36)
[2023-09-03] MEDS: ACETAMINOPHEN 325 MG TABLET PO PRN (11:36)
[2023-09-03 12:00] VITALS: BP 97/65; TEMP 98.1; O2SAT 94
[2023-09-03 16:00] VITALS: BP 96/60; TEMP 97.9; O2SAT 98
[2023-09-03 20:00] VITALS: BP 104/58; TEMP 97.7; O2SAT 96
[2023-09-03 20:46] LABS: ABG BASE EXCESS 14.6 mmol/L; ABG OXYGEN SATURATION 97.1 % (92.0-98.5); ABG PCO2 79.2 mmHg (35.0-45.0); ABG PH 7.355 (7.350-7.450); ABG PO2 97.9 mmHg (75.0-100.0); ABG TOTAL HEMOGLOBIN 11.2 G/dL (12.0-16.0); AaDO2 132.9 mmHg; COHb 0.5 % (0.5-1.5); O2Hb 96.6 % (94.0-97.0); SITE, ABG Left Radial; VENT MODE, BG ST 20/5 14 45%
[2023-09-03] MEDS: MAG HYDROX/AL HYDROX/SIMETH 30 ML UDC PO PRN (21:20)
[2023-09-04] VITALS: BP 112/64; TEMP 98; O2SAT 98
[2023-09-04 04:00] VITALS: BP 112/57; TEMP 98.1; O2SAT 93
[2023-09-04 04:18] LABS: BASOPHILS % (AUTO) 0.2 % (0.0-2.0); EOSINOPHILS # (AUTO) 0.1 K/uL (0.0-0.7); EOSINOPHILS % (AUTO) 1.3 % (0.0-6.0); HEMATOCRIT 27 % (33-45); HEMOGLOBIN 8.8 g/dL (11.5-14.8); LYMPHOCYTES # (AUTO) 1.2 K/uL (0.8-4.8); LYMPHOCYTES % (AUTO) 24.2 % (20.0-44.0); MEAN CORPUSCULAR HEMOGLOBIN 29 PG (26.0-33.0); MEAN CORPUSCULAR HGB CONC 32 g/dl (31.0-36.0); MEAN CORPUSCULAR VOLUME 90 fL (82-100); MONOCYTES # (AUTO) 0.6 K/uL (0.1-1.30); MONOCYTES % (AUTO) 12.9 % (2.0-12.0); NEUTROPHILS % (AUTO) 61.4 % (43.0-81.0); PLATELET COUNT (AUTO) 196 K/uL (150-450); RED BLOOD CELL COUNT(AUTO) 3.05 MIL/uL (4.0-5.2); RED CELL DISTRIBUTION WIDTH 18.3 % (11.5-15.0); WHITE BLOOD COUNT (AUTO) 4.8 K/uL (4.3-11.0)
[2023-09-04 04:38] LABS: CALCIUM, SERUM 8.6 mg/dL (8.5-10.1); CREATININE 0.6 mg/dL (0.6-1.3); POTASSIUM 3.7 mmol/L (3.5-5.1)
[2023-09-04 08:00] VITALS: BP 105/61; TEMP 98.4; O2SAT 94
[2023-09-04] MEDS: GLUCERNA SHAKE 237 ML CAN PO SCH (09:43)
[2023-09-04 12:00] VITALS: BP 111/71; TEMP 98.7; O2SAT 97
[2023-09-04 16:00] VITALS: BP 121/71; TEMP 99.2; O2SAT 95
[2023-09-04 20:00] VITALS: BP 117/72; TEMP 98.1; O2SAT 99
[2023-09-05] VITALS: BP 97/65; TEMP 98.3; O2SAT 99
[2023-09-05 04:00] VITALS: BP 109/63; TEMP 98.2; O2SAT 99
[2023-09-05 06:23] LABS: BASOPHILS % (AUTO) 0.4 % (0.0-2.0); EOSINOPHILS # (AUTO) 0.1 K/uL (0.0-0.7); EOSINOPHILS % (AUTO) 1.5 % (0.0-6.0); HEMATOCRIT 27 % (33-45); HEMOGLOBIN 8.8 g/dL (11.5-14.8); LYMPHOCYTES # (AUTO) 1.4 K/uL (0.8-4.8); LYMPHOCYTES % (AUTO) 27.7 % (20.0-44.0); MEAN CORPUSCULAR HEMOGLOBIN 29 PG (26.0-33.0); MEAN CORPUSCULAR HGB CONC 32 g/dl (31.0-36.0); MEAN CORPUSCULAR VOLUME 89 fL (82-100); MONOCYTES # (AUTO) 0.6 K/uL (0.1-1.30); MONOCYTES % (AUTO) 11.6 % (2.0-12.0); NEUTROPHILS # (AUTO) 3.1 K/uL (1.8-8.9); NEUTROPHILS % (AUTO) 58.8 % (43.0-81.0); PLATELET COUNT (AUTO) 266 K/uL (150-450); RED BLOOD CELL COUNT(AUTO) 3.09 MIL/uL (4.0-5.2); RED CELL DISTRIBUTION WIDTH 18.8 % (11.5-15.0); WHITE BLOOD COUNT (AUTO) 5.2 K/uL (4.3-11.0)
[2023-09-05 06:29] LABS: CALCIUM, SERUM 8.7 mg/dL (8.5-10.1); CREATININE 0.5 mg/dL (0.6-1.3); POTASSIUM 3.4 mmol/L (3.5-5.1)
[2023-09-05] MEDS: IPRATROPIUM NEB FS 0.5 MG/2.5 ML AMPUL.NEB NEB PRN (07:29)
[2023-09-05 08:00] VITALS: BP 105/62; TEMP 98.1; O2SAT 100
[2023-09-05] MEDS ORDERED: VANCOMYCIN 1 GM in IV D5W 250ml IV SCH (09:00)
[2023-09-05] MEDS: POTASSIUM CHLORIDE 20 MEQ TAB.PRT.SR PO ONE (09:25)
[2023-09-05] MEDS: VANCOMYCIN 1 GM in IV D5W 250ml IV SCH (11:55)
[2023-09-05 12:00] VITALS: BP 107/72; TEMP 97.7; O2SAT 91
[2023-09-05 16:00] VITALS: BP 107/65; TEMP 98.2; O2SAT 100
[2023-09-05] MEDS: MEROPENEM 1 G in IV NS 0.9% 100 ML IV SCH (16:10)
[2023-09-05] MEDS: ACETAMINOPHEN ES 500 MG TABLET PO PRN (17:24)
[2023-09-05 20:00] VITALS: BP 118/63; TEMP 98.5; O2SAT 100
[2023-09-06] VITALS (9 sets, daily range): BP systolic 107–140; BP diastolic 65–82; TEMP 97.9–98.5; O2SAT 96–100
[2023-09-06 03:45] LABS: ABG BASE EXCESS 6.5 mmol/L; ABG OXYGEN SATURATION 92.5 % (92.0-98.5); ABG PH 7.397 (7.350-7.450); AaDO2 121.8 mmHg; COHb 0.4 % (0.5-1.5); MetHb 0.1 % (0.0-1.5); SITE, ABG Right Radial
[2023-09-06 03:45] LABS: ABG BASE EXCESS 12.1 mmol/L; ABG OXYGEN SATURATION 89.3 % (92.0-98.5); ABG PCO2 62.4 mmHg (35.0-45.0); ABG PH 7.411 (7.350-7.450); ABG TOTAL HEMOGLOBIN 10.5 G/dL (12.0-16.0); AaDO2 157.4 mmHg; COHb 0.3 % (0.5-1.5); MetHb 0.1 % (0.0-1.5); O2Hb 88.9 % (94.0-97.0); SITE, ABG Right Radial
[2023-09-06 06:35] LABS: BASOPHILS % (AUTO) 0.7 % (0.0-2.0); EOSINOPHILS # (AUTO) 0.1 K/uL (0.0-0.7); EOSINOPHILS % (AUTO) 1.9 % (0.0-6.0); HEMATOCRIT 27 % (33-45); LYMPHOCYTES # (AUTO) 1.6 K/uL (0.8-4.8); LYMPHOCYTES % (AUTO) 32.6 % (20.0-44.0); MEAN CORPUSCULAR HEMOGLOBIN 29 PG (26.0-33.0); MEAN CORPUSCULAR HGB CONC 33 g/dl (31.0-36.0); MEAN CORPUSCULAR VOLUME 88 fL (82-100); MONOCYTES # (AUTO) 0.7 K/uL (0.1-1.30); MONOCYTES % (AUTO) 13.4 % (2.0-12.0); NEUTROPHILS # (AUTO) 2.6 K/uL (1.8-8.9); NEUTROPHILS % (AUTO) 51.4 % (43.0-81.0); PLATELET COUNT (AUTO) 295 K/uL (150-450); RED BLOOD CELL COUNT(AUTO) 3.12 MIL/uL (4.0-5.2); RED CELL DISTRIBUTION WIDTH 18.1 % (11.5-15.0)
[2023-09-06 07:06] LABS: CALCIUM, SERUM 8.9 mg/dL (8.5-10.1); CREATININE 0.6 mg/dL (0.6-1.3); PHOSPHORUS 2.5 mg/dL (2.5-4.9); POTASSIUM 3.5 mmol/L (3.5-5.1)
[2023-09-07] VITALS (7 sets, daily range): BP systolic 110–163; BP diastolic 70–87; TEMP 97.5–98; O2SAT 95–98
[2023-09-07 07:12] LABS: BASOPHILS % (AUTO) 0.4 % (0.0-2.0); EOSINOPHILS # (AUTO) 0.1 K/uL (0.0-0.7); EOSINOPHILS % (AUTO) 1.9 % (0.0-6.0); HEMATOCRIT 33 % (33-45); HEMOGLOBIN 10.6 g/dL (11.5-14.8); LYMPHOCYTES # (AUTO) 1.6 K/uL (0.8-4.8); MEAN CORPUSCULAR HEMOGLOBIN 28 PG (26.0-33.0); MEAN CORPUSCULAR HGB CONC 33 g/dl (31.0-36.0); MEAN CORPUSCULAR VOLUME 88 fL (82-100); MONOCYTES # (AUTO) 0.6 K/uL (0.1-1.30); MONOCYTES % (AUTO) 13.4 % (2.0-12.0); NEUTROPHILS # (AUTO) 2.1 K/uL (1.8-8.9); NEUTROPHILS % (AUTO) 48.3 % (43.0-81.0); PLATELET COUNT (AUTO) 326 K/uL (150-450); RED BLOOD CELL COUNT(AUTO) 3.73 MIL/uL (4.0-5.2); RED CELL DISTRIBUTION WIDTH 18.3 % (11.5-15.0); WHITE BLOOD COUNT (AUTO) 4.4 K/uL (4.3-11.0)
[2023-09-07 08:11] LABS: CALCIUM, SERUM 8.6 mg/dL (8.5-10.1); CREATININE 0.4 mg/dL (0.6-1.3); MAGNESIUM 1.8 mg/dL (1.8-2.4); PHOSPHORUS 2.8 mg/dL (2.5-4.9); POTASSIUM 3.3 mmol/L (3.5-5.1)
[2023-09-07] MEDS: POTASSIUM CHLORIDE 20 MEQ TAB.PRT.SR PO ONE (09:23)
[2023-09-07 19:13] LABS: ABG BASE EXCESS 8.2 mmol/L; ABG OXYGEN SATURATION 89.5 % (92.0-98.5); ABG PCO2 62.2 mmHg (35.0-45.0); ABG PH 7.369 (7.350-7.450); ABG PO2 60.5 mmHg (75.0-100.0); ABG TOTAL HEMOGLOBIN 10.3 G/dL (12.0-16.0); AaDO2 94.9 mmHg; COHb 0.3 % (0.5-1.5); MetHb 0.3 % (0.0-1.5); SITE, ABG Right Radial
[2023-09-07] MEDS: ALPRAZOLAM 0.25 MG TABLET PO PRN (22:00)
[2023-09-08] VITALS (8 sets, daily range): BP systolic 128–158; BP diastolic 63–78; TEMP 97.5–98.8; O2SAT 93–98
[2023-09-08 07:38] LABS: BASOPHILS % (AUTO) 0.6 % (0.0-2.0); EOSINOPHILS # (AUTO) 0.1 K/uL (0.0-0.7); EOSINOPHILS % (AUTO) 2.1 % (0.0-6.0); HEMATOCRIT 32 % (33-45); HEMOGLOBIN 9.9 g/dL (11.5-14.8); LYMPHOCYTES % (AUTO) 35.2 % (20.0-44.0); MEAN CORPUSCULAR HEMOGLOBIN 28 PG (26.0-33.0); MEAN CORPUSCULAR HGB CONC 32 g/dl (31.0-36.0); MEAN CORPUSCULAR VOLUME 89 fL (82-100); MONOCYTES # (AUTO) 0.8 K/uL (0.1-1.30); MONOCYTES % (AUTO) 14.4 % (2.0-12.0); NEUTROPHILS # (AUTO) 2.7 K/uL (1.8-8.9); NEUTROPHILS % (AUTO) 47.7 % (43.0-81.0); PLATELET COUNT (AUTO) 422 K/uL (150-450); RED BLOOD CELL COUNT(AUTO) 3.55 MIL/uL (4.0-5.2); RED CELL DISTRIBUTION WIDTH 18.4 % (11.5-15.0); WHITE BLOOD COUNT (AUTO) 5.8 K/uL (4.3-11.0)
[2023-09-08 08:13] LABS: CALCIUM, SERUM 8.9 mg/dL (8.5-10.1); CREATININE 0.4 mg/dL (0.6-1.3); MAGNESIUM 1.9 mg/dL (1.8-2.4); PHOSPHORUS 2.7 mg/dL (2.5-4.9); POTASSIUM 3.5 mmol/L (3.5-5.1)
[2023-09-09] VITALS (8 sets, daily range): BP systolic 136–163; BP diastolic 65–80; TEMP 96.9–98.4; O2SAT 90–99
[2023-09-09 07:25] LABS: BASOPHILS % (AUTO) 0.4 % (0.0-2.0); EOSINOPHILS # (AUTO) 0.1 K/uL (0.0-0.7); EOSINOPHILS % (AUTO) 1.5 % (0.0-6.0); HEMATOCRIT 32 % (33-45); HEMOGLOBIN 10.5 g/dL (11.5-14.8); LYMPHOCYTES # (AUTO) 2.3 K/uL (0.8-4.8); LYMPHOCYTES % (AUTO) 31.3 % (20.0-44.0); MEAN CORPUSCULAR HEMOGLOBIN 29 PG (26.0-33.0); MEAN CORPUSCULAR HGB CONC 32 g/dl (31.0-36.0); MEAN CORPUSCULAR VOLUME 88 fL (82-100); MONOCYTES % (AUTO) 13.6 % (2.0-12.0); NEUTROPHILS % (AUTO) 53.2 % (43.0-81.0); PLATELET COUNT (AUTO) 479 K/uL (150-450); RED BLOOD CELL COUNT(AUTO) 3.67 MIL/uL (4.0-5.2); RED CELL DISTRIBUTION WIDTH 17.8 % (11.5-15.0); WHITE BLOOD COUNT (AUTO) 7.4 K/uL (4.3-11.0)
[2023-09-09 08:00] LABS: CALCIUM, SERUM 8.9 mg/dL (8.5-10.1); CREATININE 0.4 mg/dL (0.6-1.3); MAGNESIUM 1.9 mg/dL (1.8-2.4); PHOSPHORUS 2.8 mg/dL (2.5-4.9); POTASSIUM 3.4 mmol/L (3.5-5.1)
[2023-09-09] MEDS: POTASSIUM CHLORIDE 20 MEQ TAB.PRT.SR PO ONE (11:35)
[2023-09-10] VITALS (7 sets, daily range): BP systolic 130–165; BP diastolic 63–90; TEMP 97.2–98.6; O2SAT 90–99
[2023-09-10 07:18] LABS: BASOPHILS % (AUTO) 0.6 % (0.0-2.0); EOSINOPHILS # (AUTO) 0.2 K/uL (0.0-0.7); EOSINOPHILS % (AUTO) 2.6 % (0.0-6.0); HEMATOCRIT 33 % (33-45); HEMOGLOBIN 10.7 g/dL (11.5-14.8); LYMPHOCYTES # (AUTO) 2.8 K/uL (0.8-4.8); LYMPHOCYTES % (AUTO) 34.1 % (20.0-44.0); MEAN CORPUSCULAR HEMOGLOBIN 29 PG (26.0-33.0); MEAN CORPUSCULAR HGB CONC 32 g/dl (31.0-36.0); MEAN CORPUSCULAR VOLUME 89 fL (82-100); MONOCYTES % (AUTO) 12.6 % (2.0-12.0); NEUTROPHILS # (AUTO) 4.1 K/uL (1.8-8.9); NEUTROPHILS % (AUTO) 50.1 % (43.0-81.0); PLATELET COUNT (AUTO) 443 K/uL (150-450); RED BLOOD CELL COUNT(AUTO) 3.69 MIL/uL (4.0-5.2); RED CELL DISTRIBUTION WIDTH 18.1 % (11.5-15.0); WHITE BLOOD COUNT (AUTO) 8.2 K/uL (4.3-11.0)
[2023-09-10 07:48] LABS: CALCIUM, SERUM 8.9 mg/dL (8.5-10.1); CREATININE 0.3 mg/dL (0.6-1.3); PHOSPHORUS 2.6 mg/dL (2.5-4.9)
[2023-09-11] VITALS (8 sets, daily range): BP systolic 125–151; BP diastolic 68–88; TEMP 97.5–98.8; O2SAT 96–99
[2023-09-11 07:20] LABS: BASOPHILS % (AUTO) 0.4 % (0.0-2.0); EOSINOPHILS # (AUTO) 0.1 K/uL (0.0-0.7); EOSINOPHILS % (AUTO) 1.3 % (0.0-6.0); HEMATOCRIT 32 % (33-45); HEMOGLOBIN 10.2 g/dL (11.5-14.8); LYMPHOCYTES # (AUTO) 2.7 K/uL (0.8-4.8); LYMPHOCYTES % (AUTO) 32.6 % (20.0-44.0); MEAN CORPUSCULAR HEMOGLOBIN 28 PG (26.0-33.0); MEAN CORPUSCULAR HGB CONC 32 g/dl (31.0-36.0); MEAN CORPUSCULAR VOLUME 88 fL (82-100); MONOCYTES % (AUTO) 11.5 % (2.0-12.0); NEUTROPHILS # (AUTO) 4.6 K/uL (1.8-8.9); NEUTROPHILS % (AUTO) 54.2 % (43.0-81.0); PLATELET COUNT (AUTO) 490 K/uL (150-450); RED BLOOD CELL COUNT(AUTO) 3.68 MIL/uL (4.0-5.2); RED CELL DISTRIBUTION WIDTH 17.7 % (11.5-15.0); WHITE BLOOD COUNT (AUTO) 8.4 K/uL (4.3-11.0)
[2023-09-11 07:30] LABS: CALCIUM, SERUM 8.8 mg/dL (8.5-10.1); CREATININE 0.4 mg/dL (0.6-1.3); POTASSIUM 3.3 mmol/L (3.5-5.1)
[2023-09-11] MEDS: POTASSIUM CHLORIDE 20 MEQ TAB.PRT.SR PO SCH (10:17)
[2023-09-12] VITALS: BP 139/97; TEMP 97.8; O2SAT 95
[2023-09-12 04:00] VITALS: BP 131/71; TEMP 98.6; O2SAT 95
[2023-09-12 07:15] LABS: BASOPHILS % (AUTO) 0.4 % (0.0-2.0); EOSINOPHILS # (AUTO) 0.1 K/uL (0.0-0.7); EOSINOPHILS % (AUTO) 1.2 % (0.0-6.0); HEMATOCRIT 32 % (33-45); LYMPHOCYTES # (AUTO) 2.8 K/uL (0.8-4.8); LYMPHOCYTES % (AUTO) 30.5 % (20.0-44.0); MEAN CORPUSCULAR HEMOGLOBIN 28 PG (26.0-33.0); MEAN CORPUSCULAR HGB CONC 31 g/dl (31.0-36.0); MEAN CORPUSCULAR VOLUME 88 fL (82-100); MONOCYTES # (AUTO) 1.1 K/uL (0.1-1.30); MONOCYTES % (AUTO) 11.7 % (2.0-12.0); NEUTROPHILS # (AUTO) 5.1 K/uL (1.8-8.9); NEUTROPHILS % (AUTO) 56.2 % (43.0-81.0); PLATELET COUNT (AUTO) 473 K/uL (150-450); RED BLOOD CELL COUNT(AUTO) 3.65 MIL/uL (4.0-5.2); RED CELL DISTRIBUTION WIDTH 17.5 % (11.5-15.0); WHITE BLOOD COUNT (AUTO) 9.1 K/uL (4.3-11.0)
[2023-09-12 08:00] VITALS: BP 151/74; TEMP 98.4; O2SAT 91
[2023-09-12 08:16] LABS: ABG BASE EXCESS 14.9 mmol/L; ABG OXYGEN SATURATION 88.8 % (92.0-98.5); ABG PCO2 78.5 mmHg (35.0-45.0); ABG PH 7.361 (7.350-7.450); ABG TOTAL HEMOGLOBIN 11.5 G/dL (12.0-16.0); AaDO2 78.3 mmHg; COHb 0.9 % (0.5-1.5); MetHb 0.3 % (0.0-1.5); O2Hb 87.7 % (94.0-97.0); SITE, ABG Right Radial
[2023-09-12 08:22] LABS: CALCIUM, SERUM 8.9 mg/dL (8.5-10.1); CREATININE 0.4 mg/dL (0.6-1.3); MAGNESIUM 1.6 mg/dL (1.8-2.4); PHOSPHORUS 2.6 mg/dL (2.5-4.9); POTASSIUM 3.1 mmol/L (3.5-5.1)
[2023-09-12] MEDS: MAGNESIUM OXIDE 400 MG TABLET PO ONE (10:42)
[2023-09-12] MEDS: POTASSIUM CHLORIDE 20 MEQ TAB.PRT.SR PO SCH (10:42)
[2023-09-12 12:00] VITALS: BP 124/81; TEMP 98.4; O2SAT 97
[2023-09-12 16:00] VITALS: BP 177/95; TEMP 98.4; O2SAT 97
[2023-09-12 16:33] VITALS: BP 177/95
[2023-09-12] MEDS: hydrALAZINE HCL IV 20 MG VIAL IV PRN (16:33)
== END 2023-09-12 18:32 | DRG 871 ==
LOC: ER 16:15 → TELE1 17:56 → TELE-TD 19:42 → TELE1 09-04 11:14
PROVIDERS: ADMIT Nurse Practitioner Acute Care
PROC: 5A09357 Assistance with Respiratory Ventilation, Less than 24 Consecutive Hours, Continuous Positive Airway Pressure (ICD-10-PCS; principal; 2023-09-02)
PROC: 5A09357 Assistance with Respiratory Ventilation, Less than 24 Consecutive Hours, Continuous Positive Airway Pressure (ICD-10-PCS; 2023-09-03)
PROC: 5A09357 Assistance with Respiratory Ventilation, Less than 24 Consecutive Hours, Continuous Positive Airway Pressure (ICD-10-PCS; 2023-09-04)
PROC: 5A09357 Assistance with Respiratory Ventilation, Less than 24 Consecutive Hours, Continuous Positive Airway Pressure (ICD-10-PCS; 2023-09-05)
DX: A41.50 Gram-negative sepsis, unspecified (principal); G92.8 Other toxic encephalopathy; J96.01 Acute respiratory failure with hypoxia; J96.02 Acute respiratory failure with hypercapnia; I21.A1 Myocardial infarction type 2; J15.69 Pneumonia due to other Gram-negative bacteria; E87.4 Mixed disorder of acid-base balance; J44.0 Chronic obstructive pulmonary disease with (acute) lower respiratory infection; E66.2 Morbid (severe) obesity with alveolar hypoventilation; Z16.12 Extended spectrum beta lactamase (ESBL) resistance; D63.8 Anemia in other chronic diseases classified elsewhere; E78.5 Hyperlipidemia, unspecified; Z79.01 Long term (current) use of anticoagulants; Z86.73 Personal history of transient ischemic attack (TIA), and cerebral infarction without residual deficits; Z87.891 Personal history of nicotine dependence; Z79.4 Long term (current) use of insulin; I11.0 Hypertensive heart disease with heart failure; I48.0 Paroxysmal atrial fibrillation; Z20.822 Contact with and (suspected) exposure to COVID-19; E87.6 Hypokalemia; E11.65 Type 2 diabetes mellitus with hyperglycemia; I50.9 Heart failure, unspecified; Z79.899 Other long term (current) drug therapy; Z68.33 Body mass index [BMI] 33.0-33.9, adult; L98.8 Other specified disorders of the skin and subcutaneous tissue; B96.1 Klebsiella pneumoniae [K. pneumoniae] as the cause of diseases classified elsewhere; L89.526 Pressure-induced deep tissue damage of left ankle; L89.516 Pressure-induced deep tissue damage of right ankle; T50.2X5A Adverse effect of carbonic-anhydrase inhibitors, benzothiadiazides and other diuretics, initial encounter; Y92.129 Unspecified place in nursing home as the place of occurrence of the external cause
CPT/HCPCS: 36415; 36600; 71045-TC; 80048-TC; 80061-TC; 80076-TC; 80202-TC; 81001; 82803-TC; 82962-TC; 83605-TC; 83735-TC; 83880; 84100-TC; 84443-TC; 84484-TC; 85025-TC; 85730-TC; 87040-TC; 87081-TC; 87086-TC; 87186-TC; 92521; 92526; 92611-TC; 94660; 94760-TC; 94762-TC; 94799-TC; A4223; C9113; G0378; J0360; J0692; J1815; J2185; J2543; J3370; J3480; J7030; J7040; J7050; J7060